=== PATIENT | male | born 1955 | race Caucasian/White ===

== ENCOUNTER → 2024-05-20 | Outpatient (CLI) | payer MEDICARE, BC, SELFPAY ==
--- NOTE | 2024-05-20 09:15 | XR_ITS ---
Examination: Retroperitoneal ultrasound, complete Technique: Multiple high resolution grayscale images of the retroperitoneum obtained, including kidneys and bladder. Exam date and time:May 20, 2024 0921 hours INDICATIONS: Chronic kidney disease stage II FINDINGS: Right kidney 9.8 x 7.4 x 7.2 cm cortex 2.4 cm Left kidney 11.1 x 6.4 x 5.3 cm cortex 2.0 cm 12 mm x 15 mm upper pole left renal calculus Mild to moderate bilateral renal parenchymal scar formation No hydronephrosis Contracted urinary bladder IMPRESSION: Suspicious for 12 x 10 x 15 mm calculus upper pole left kidney, no hydronephrosis
== END | disposition home or self-care (01) ==
PROVIDERS: PCP Family Medicine; Referring Provider Family Medicine; Visit Provider Family Medicine
DX: N18.2 Chronic kidney disease, stage 2 (mild) (principal)
CPT/HCPCS: 76770

== ENCOUNTER → 2024-07-14 | Outpatient (BNVA) | payer MEDICARE, BC, SELFPAY | END | disposition home or self-care (01) | PROVIDERS: PCP Family Medicine; Referring Provider Family Medicine; Visit Provider Urology | DX: N40.1 Benign prostatic hyperplasia with lower urinary tract symptoms (principal); N13.8 Other obstructive and reflux uropathy; N39.43 Post-void dribbling; I12.9 Hypertensive chronic kidney disease with stage 1 through stage 4 chronic kidney disease, or unspecified chronic kidney disease; E11.22 Type 2 diabetes mellitus with diabetic chronic kidney disease; N18.30 Chronic kidney disease, stage 3 unspecified; I25.10 Atherosclerotic heart disease of native coronary artery without angina pectoris; E66.01 Morbid (severe) obesity due to excess calories; Z68.42 Body mass index [BMI] 45.0-49.9, adult | CPT/HCPCS: 81003; 99212; G0463 ==

== ENCOUNTER → 2024-08-27 | Outpatient (BNVA) | payer MEDICARE, BC, SELFPAY | END | disposition home or self-care (01) | PROVIDERS: PCP Family Medicine; Referring Provider Family Medicine; Visit Provider Urology | DX: N40.1 Benign prostatic hyperplasia with lower urinary tract symptoms (principal); R39.12 Poor urinary stream; I10 Essential (primary) hypertension; E11.9 Type 2 diabetes mellitus without complications; E03.9 Hypothyroidism, unspecified | CPT/HCPCS: 51741; 51798 ==

== ENCOUNTER 2024-09-15 06:40 | Day surgery (SDC) | payer MEDICARE, BC, SELFPAY ==
[2024-09-14 13:16] VITALS: BMI 41.7
[2024-09-15] VITALS (10 sets, daily range): BP systolic 108–143; BP diastolic 60–102; PULSE 93–101; RESP 10–24; TEMP 36.7–36.8; O2SAT 95–100; BMI 42.3
[2024-09-15] MEDS: CEFOXITIN 2 GM in SODIUM CHLORIDE 0.9% (Popper) 50 ML IV (08:00)
[2024-09-15] MEDS: MIDAZOLAM INJ 1 MG/ML VIAL 2 ML (ASD USE ONLY) 2 MG IV (08:00)
[2024-09-15] MEDS: SODIUM CHLORIDE 0.9% 500 ML 500 ML 100 ML IV (08:00)
[2024-09-15] MEDS: fentaNYL CIT INJ 50 mCg/ML AMP 2ML (ASD USE ONLY) IV (08:01)
[2024-09-15] MEDS: DiphenhydrAMINE INJ 50 MG/ML VIAL 25 MG IV (08:01)
== END 2024-09-15 08:26 | disposition home or self-care (01) ==
PROVIDERS: PCP Family Medicine; Referring Provider Surgery; Visit Provider Surgery
PROC: 0DBE8ZX Excision of Large Intestine, Via Natural or Artificial Opening Endoscopic, Diagnostic (ICD-10-PCS; CPT 45380; principal; 2024-09-15 07:30)
DX: K64.1 Second degree hemorrhoids (principal); K57.30 Diverticulosis of large intestine without perforation or abscess without bleeding; E11.9 Type 2 diabetes mellitus without complications; I10 Essential (primary) hypertension; I48.91 Unspecified atrial fibrillation; Z95.3 Presence of xenogenic heart valve; Z79.01 Long term (current) use of anticoagulants; Z79.899 Other long term (current) drug therapy; Z88.2 Allergy status to sulfonamides
CPT/HCPCS: 45378; J0694; J1200; J2250; J3010; J7030; J7040

== ENCOUNTER → 2024-09-16 | Outpatient (CLI) | payer MEDICARE, BC, SELFPAY ==
--- NOTE | 2024-09-16 12:00 | XR_ITS ---
Examination: CT abdomen and pelvis without contrast. Coronal 3-D reconstructions. Sagittal 2-D reconstructions. Date and time of exam:September 16, 2024 1206 hours INDICATIONS: Right upper abdominal pain beginning 2 weeks ago, history kidney stones CTDI: vol (mGy): 16.2 DLP: (mGycm): 965 Technique: Axial images of the abdomen have been obtained, 3 mm slice thickness Intravenous contrast material has not been administered. Low dose protocols were performed. One or more of the following dose reduction techniques were used; automated exposure control, adjustment of the mA and/or KV according to patient size, use of iterative reconstruction technique. Findings: Partial visualization aortic valve replacement Multiple low-density liver lesions most consistent with cysts No gallstones Spleen is not enlarged No pancreatic or adrenal mass Mild perinephric stranding No renal or ureteral calculi, no hydronephrosis Aortic calcification no aneurysmal dilatation Normal appendix 12 mm fat-containing umbilical hernia Colonic diverticulosis No bladder mass or bladder calculi Transverse prostate dimension 4.9 cm Advanced degenerative disc disease lumbar spine IMPRESSION: Recommend hepatic sonography to confirm benign liver cysts No renal or ureteral calculi, no hydronephrosis No bladder mass or bladder calculi Mild bilateral perinephric stranding, consider urinary tract infection or nephritis
== END | disposition home or self-care (01) ==
LOC: CCTX 11:31
PROVIDERS: PCP Family Medicine; Referring Provider Urology; Visit Provider Urology
DX: N28.89 Other specified disorders of kidney and ureter (principal)
CPT/HCPCS: 74176

== ENCOUNTER → 2024-10-12 | Outpatient (CLI) | payer MEDICARE, BC, SELFPAY ==
--- NOTE | 2024-10-12 11:00 | XR_ITS ---
Examination: Abdomen sonogram, complete Date and time of exam: October 12, 2024 1452 hours INDICATIONS: CT abdomen pelvis September 16, 2024 low density hepatic lesions. Technique: Multiple real-time grayscale transabdominal sonographic images of the abdomen have been obtained. Findings: Normal gallbladder Normal common bile duct Pancreatic head 2.1 cm Aorta not enlarged Liver 16.5 cm fatty infiltration left lobe liver cyst 17 x 10 x 12 mm Normal hepatopedal portal venous flow Patent IVC Right kidney 10.1 cm cortex 1.3 cm 26 mm lower pole cyst Left kidney 11.2 cm cortex 1.1 cm Mild bilateral renal parenchymal scar formation Spleen 11.1 cm IMPRESSION: Benign liver and left renal cysts
== END | disposition home or self-care (01) ==
LOC: CDIM 14:49
PROVIDERS: PCP Family Medicine; Referring Provider Family Medicine; Visit Provider Family Medicine
DX: N28.1 Cyst of kidney, acquired (principal)
CPT/HCPCS: 76700

== ENCOUNTER → 2024-10-13 | Outpatient (BNVA) | payer MEDICARE, BC, SELFPAY | END | disposition home or self-care (01) | PROVIDERS: PCP Family Medicine; Referring Provider Family Medicine; Visit Provider Urology | DX: N40.0 Benign prostatic hyperplasia without lower urinary tract symptoms (principal); E11.9 Type 2 diabetes mellitus without complications; I10 Essential (primary) hypertension; I25.10 Atherosclerotic heart disease of native coronary artery without angina pectoris; E66.9 Obesity, unspecified; Z68.41 Body mass index [BMI] 40.0-44.9, adult; I48.91 Unspecified atrial fibrillation; E03.9 Hypothyroidism, unspecified | CPT/HCPCS: 81003; 99212; G0463 ==

== ENCOUNTER 2025-05-04 10:03 | Outpatient (CLI) | payer MEDICARE, BC, SELFPAY ==
[2025-05-03 14:30] VITALS: BMI 43.2
[2025-05-04] VITALS (9 sets, daily range): BP systolic 105–149; BP diastolic 52–80; PULSE 45–82; RESP 16–20; TEMP 36.5–36.7; O2SAT 94–99
[2025-05-04] MEDS: MIDAZOLAM INJ 1 MG/ML VIAL 2 ML 4 MG IVP (12:06)
[2025-05-04] MEDS: fentaNYL CIT INJ 50 mCg/ML AMP 2ML 100 MCG IVP (12:07)
--- NOTE | 2025-05-04 12:12 | EKG_ITS ---
[facility] Test Date: 2025-05-04 Pat Name: EMORY VALLES Department: Room: - Gender: Male [employer]: : 1955 Requested By: Ines Ordoñez Order Number: [id number] Reading MD: Ines Ordoñez Measurements Intervals [place] Rate: 45 P: 84 UT: 200 QRS: -48 QRSD: 166 T: -12 QT: 531 QTc: 463 Interpretive Statements SINUS BRADYCARDIA WITH OCCASIONAL VENTRICULAR PREMATURE COMPLEXES RIGHT BUNDLE BRANCH BLOCK LEFT ANTERIOR FASCICULAR BLOCK Compared to ECG 01/17/2018 20:31:26 Ventricular premature complex(es) now present Left anterior fascicular block now present Sinus rhythm no longer present Left-axis deviation no longer present /store/S0/[id number]/ecg/[id number].pdf
--- NOTE | 2025-05-04 12:48 | ESOP_ITS ---
RE: EMORY VALLES : 1955 DATE OF OPERATION: 05/04/25 PROCEDURES PERFORMED: 1. Synchronized cardioversion. 2. Conscious sedation for 30-minute duration. DIAGNOSIS: Atrial flutter, symptomatic. HISTORY AND INDICATION: The patient is a 69-year-old male with history of paroxysmal atrial fibrillation and flutter, status post aortic valve replacement, congestive heart failure, and obesity. He has been having palpitations, shortness of breath on exertion, and remained in atrial flutter on max medical management including antiarrhythmic drug therapy with symptoms of shortness of breath. Hence, synchronized cardioversion is recommended. PROCEDURE DETAILS: The patient was brought to the cardiac catheterization laboratory recovery area, was given conscious sedation, 3 mg of Versed, additional 2 mg of Versed and 100 mcg of fentanyl. The patient was sedated adequately. Subsequently, synchronized cardioversion was performed successfully using 100 joules x1, converted to sinus rhythm, sinus bradycardia, right bundle-branch block, heart rate in the low 40s. The patient was hemodynamically stable, blood pressure was normal, and he tolerated the procedure very well. SUMMARY: Successful synchronized cardioversion from atrial flutter to normal sinus rhythm. COMPLICATIONS: None. DT: 12:27:29 TT: 12:47:00 Ref: [id number] - TID: [id number]
--- NOTE | 2025-05-04 13:39 | PC.NURSE ---
patient transferred vias wheelchair to personal vehicle. patient alert and oriented gcs of 15. education given to patient and sister. both expressed verbal understanding
== END 2025-05-04 13:38 | disposition home or self-care (01) ==
LOC: S2EX 10:03 → SCCL 10:17
PROVIDERS: PCP Family Medicine; Referring Provider Internal Medicine Cardiovascular Disease; Visit Provider Internal Medicine Cardiovascular Disease
PROC: 5A2204Z Restoration of Cardiac Rhythm, Single (ICD-10-PCS; CPT 92960; principal; 2025-05-04 11:30)
DX: I48.92 Unspecified atrial flutter (principal); I48.0 Paroxysmal atrial fibrillation; Z95.2 Presence of prosthetic heart valve; E13.9 Other specified diabetes mellitus without complications; G47.33 Obstructive sleep apnea (adult) (pediatric); I50.9 Heart failure, unspecified
CPT/HCPCS: 92960; 93005; J2250; J3010